=== PATIENT | male | born 1970 | race Caucasian/White ===

== ENCOUNTER 2018-08-24 09:13 | Emergency (ER) | payer OTHER ==
[~2018-08-24] VITALS: Ht 182.9 cm; Wt 102.1 kg
[2018-08-24 09:15] VITALS: BP 133/88
[2018-08-24] MEDS ORDERED: KETOROLAC TROMETH 60MG/2ML VIAL IM ONE (10:15)
== END 2018-08-24 10:31 | disposition home or self-care (01) ==
LOC: ER 09:18
DX: S86.911A Strain of unspecified muscle(s) and tendon(s) at lower leg level, right leg, initial encounter (principal); X50.9XXA Other and unspecified overexertion or strenuous movements or postures, initial encounter; Y93.89 Activity, other specified; Y99.0 Civilian activity done for income or pay; Y92.89 Other specified places as the place of occurrence of the external cause
CPT/HCPCS: 93971; 96372; 99284; J1885

== ENCOUNTER 2020-01-18 10:30 | Emergency (ER) | payer BC, OTHER ==
[~2020-01-18] VITALS: Ht 182.9 cm; Wt 102.1 kg
[2020-01-18 10:30] VITALS: BP 147/77
== END 2020-01-18 12:26 | disposition left against medical advice (07) ==
LOC: ER 10:30
DX: S61.215A Laceration without foreign body of left ring finger without damage to nail, initial encounter (principal); Z53.21 Procedure and treatment not carried out due to patient leaving prior to being seen by health care provider; X58.XXXA Exposure to other specified factors, initial encounter; Y93.89 Activity, other specified; Y92.89 Other specified places as the place of occurrence of the external cause; Y99.8 Other external cause status

== ENCOUNTER 2023-09-24 09:19 | Emergency (ER) | payer SELFPAY ==
[~2023-09-24] VITALS: Ht 182.9 cm; Wt 101.1 kg
[2023-09-24 09:54] VITALS: BP 135/75; PULSE 82; RESP 18; TEMP 97.9; O2SAT 97
[2023-09-24] MEDS: KETOROLAC TROMETH 60MG/2ML VIAL IM ONE (10:11)
[2023-09-24] MEDS ORDERED: HYDR-4902 PO (10:45)
[2023-09-24] MEDS ORDERED: IBUP-1456 PO (10:45)
== END 2023-09-24 10:54 | disposition home or self-care (01) ==
LOC: ER 09:19
DX: S83.92XA Sprain of unspecified site of left knee, initial encounter (principal); M23.92 Unspecified internal derangement of left knee; Z88.0 Allergy status to penicillin; W22.8XXA Striking against or struck by other objects, initial encounter; Y93.I9 Activity, other involving external motion; Y92.89 Other specified places as the place of occurrence of the external cause; Y99.8 Other external cause status
CPT/HCPCS: 73562; 96372; 99283; J1885